=== PATIENT | male | born 1960 | race Asian ===

== ENCOUNTER 2018-02-20 16:57 | Emergency (ER) | payer OTHER ==
[2018-02-20] MEDS: ACETAMINOPHEN 325 MG TAB PO (17:12)
== END 2018-02-20 18:32 | disposition home or self-care (01) ==
LOC: FTE 18:32
DX: S90.112A Contusion of left great toe without damage to nail, initial encounter (principal); S69.91XA Unspecified injury of right wrist, hand and finger(s), initial encounter; S00.83XA Contusion of other part of head, initial encounter; W19.XXXA Unspecified fall, initial encounter; Y92.9 Unspecified place or not applicable
CPT/HCPCS: 29125; 73110-RT; 73660; 99284-25